=== PATIENT | male | born 1935 | race Caucasian/White ===

== ENCOUNTER → 2020-09-13 08:50 | Outpatient (BNVA) | payer MEDICARE, SELFPAY | PROVIDERS: PCP Nurse Practitioner Family; Referring Provider Nurse Practitioner Family; Visit Provider Internal Medicine Endocrinology, Diabetes & Metabolism | DX: E11.65 Type 2 diabetes mellitus with hyperglycemia (principal); E11.42 Type 2 diabetes mellitus with diabetic polyneuropathy; E11.22 Type 2 diabetes mellitus with diabetic chronic kidney disease; I12.9 Hypertensive chronic kidney disease with stage 1 through stage 4 chronic kidney disease, or unspecified chronic kidney disease; N18.4 Chronic kidney disease, stage 4 (severe); E11.3599 Type 2 diabetes mellitus with proliferative diabetic retinopathy without macular edema, unspecified eye; Z79.4 Long term (current) use of insulin; E78.5 Hyperlipidemia, unspecified | CPT/HCPCS: 99212 ==

== ENCOUNTER 2020-09-16 09:37 | Outpatient (REF) | payer MEDICARE, SELFPAY ==
[2020-09-16 11:11] LABS: Creatinine Urine 71.42 mg/dL
[2020-09-16 11:27] LABS: Microalbum/Creatinine Ratio Ur 702.8 ug/mg cr
[2020-09-16 11:37] LABS: Alanine Aminotransferase 11 U/L (0-40); Albumin Level 3.1 g/dL (3.5-5.0); Alkaline Phosphatase 79 U/L (39-117); Anion Gap 14 (12-20); Aspartate Amino Transferase 9 U/L (5-37); Bilirubin Total 0.2 mg/dL (0.0-1.0); Blood Urea Nitrogen 69 mg/dL (9-16); Calcium 8.4 mg/dL (8.4-10.2); Carbon Dioxide 27 mmol/L (22-29); Chloride 101 mmol/L (96-108); Cholesterol 155 mg/dL; Estimated Glomerular Filt Rate 12; Glucose Fasting 268 mg/dL (60-99); HDL Cholesterol 37 mg/dL; LDL Cholesterol Calculated 105 mg/dl; Potassium 5.2 mmol/l (3.3-5.1); Sodium 137 mmol/L (135-145); Total Protein 6.4 g/dL (6.5-8.0); Triglycerides 69 mg/dL
[2020-09-16 12:03] LABS: Vitamin B12 340 pg/mL (200-900)
[2020-09-16 17:56] LABS: Estimated Average Glucose 226 mg/dL; Hemoglobin A1c % 9.5 %
[2020-09-17 07:47] LABS: LDL Cholesterol Direct 102 mg/dL (<100)
== END 2020-09-16 09:38 | disposition home or self-care (01) ==
LOC: HO.10HDL 09:37
PROVIDERS: Visit Provider Internal Medicine Endocrinology, Diabetes & Metabolism
DX: E11.65 Type 2 diabetes mellitus with hyperglycemia (principal)
CPT/HCPCS: 80053; 80061; 82043; 82607; 83036; 83721

== ENCOUNTER → 2020-12-14 08:45 | Outpatient (BNVA) | payer MEDICARE, SELFPAY | PROVIDERS: PCP Nurse Practitioner Family; Referring Provider Nurse Practitioner Family; Visit Provider Nurse Practitioner Gerontology | DX: E11.65 Type 2 diabetes mellitus with hyperglycemia (principal); I12.9 Hypertensive chronic kidney disease with stage 1 through stage 4 chronic kidney disease, or unspecified chronic kidney disease; E11.22 Type 2 diabetes mellitus with diabetic chronic kidney disease; N18.4 Chronic kidney disease, stage 4 (severe); E78.5 Hyperlipidemia, unspecified; Z79.4 Long term (current) use of insulin | CPT/HCPCS: Q3014 ==

== ENCOUNTER 2021-06-28 08:21 | Outpatient (REF) | payer MEDICARE, SELFPAY ==
--- NOTE | ~2021-06-28 | US_ITS ---
EXAMINATION: US RETROPERITONEAL LIMITED (AORTA) CLINICAL INFORMATION: History of smoking. COMPARISON: None. TECHNIQUE: Vidales-scale, color Doppler and spectral Doppler evaluation of the abdominal aorta. FINDINGS: There are scattered atherosclerotic calcifications. The measurements of the aorta in maximum AP and transverse dimensions respectively are as follows: Proximal: 2.5 x 2.3 cm. Mid: 2.2 x 2.5 cm. Distal: 1.9 x 1.7 cm. PSV: 61.1 cm/s. The measurements of the common iliac arteries in maximum AP and TRV dimensions are as follows: Right: AP: 1.0 cm. TRV: 1.1 cm. Left: AP: 1.2 cm. TRV: 1.2 cm. US/US aorta IMPRESSION: No abdominal aortic aneurysm. Scattered atherosclerotic calcifications.
== END 2021-06-28 08:22 | disposition home or self-care (01) ==
LOC: HO.US 08:21
PROVIDERS: PCP Nurse Practitioner Family; Visit Provider Internal Medicine
DX: Z87.891 Personal history of nicotine dependence (principal)
CPT/HCPCS: 76775